=== PATIENT | male | born 1960 | race Caucasian/White ===

== ENCOUNTER 2020-07-03 13:54 | Emergency (ER) | payer BC, MEDICAID ==
[~2020-07-03] VITALS: Ht 182.9 cm; Wt 86.2 kg
[~2020-07-03 13:54] MED LIST: LISINOPRIL; METFORMIN; [UNRECOGNIZED DRUG - OTHER]
[2020-07-03 14:15] VITALS: BP_SYST 147
[2020-07-03 14:50] VITALS: BP_SYST 147
[2020-07-03] MEDS: cefTRIAXone 1 GM in LIDOCAINE 1%, 20 ML MDV 2.1 ML IM ONE (14:50)
== END 2020-07-03 14:51 | disposition home or self-care (01) ==
LOC: SED 13:54
DX: E11.621 Type 2 diabetes mellitus with foot ulcer (principal); I10 Essential (primary) hypertension; E11.9 Type 2 diabetes mellitus without complications; Z85.528 Personal history of other malignant neoplasm of kidney
CPT/HCPCS: 96372; 99283; J0696; J2001

== ENCOUNTER 2020-11-09 13:07 | Emergency (ER) | payer MEDICAID ==
[~2020-11-09] VITALS: Ht 185.4 cm; Wt 89.8 kg
[2020-11-09 13:19] VITALS: BP_SYST 128
[2020-11-09] MEDS ORDERED: PIPERACILLIN/TAZO 3.38 GM in D5W 50 ML IV ONE (13:30)
[2020-11-09] MEDS ORDERED: NACL 0.9% 1,000 ML IV ONE (13:30)
[2020-11-09] MEDS ORDERED: VANCOMYCIN HCL 1,000 MG in D5W 250 ML IV ONE (13:30)
[2020-11-09 13:48] LABS: BASOPHILS # (AUTO) 0.2 K/uL (0.0-0.2); BASOPHILS % (AUTO) 1.3 % (0.0-2.0); EOSINOPHILS % (AUTO) 0.4 % (0.0-4.0); HEMATOCRIT 37.6 % (36-54); HEMOGLOBIN 13.2 g/dL (14.0-18.0); LYMPHOCYTES # (AUTO) 0.7 K/uL (1.0-5.5); LYMPHOCYTES % (AUTO) 5.9 % (20.5-51.5); MEAN CORPUSCULAR HEMOGLOBIN 31 pg (27-31); MEAN CORPUSCULAR HGB CONC 35 % (32-36); MEAN CORPUSCULAR VOLUME 90 fL (79.0-98.0); MONOCYTES # (AUTO) 0.5 K/uL (0.0-1.0); MONOCYTES % (AUTO) 4.4 % (1.7-9.3); NEUTROPHILS # (AUTO) 10.7 K/uL (1.8-7.7); PLATELET COUNT (AUTO) 229 K/uL (130-430); RED CELL DISTRIBUTION WIDTH 13.7 % (9.0-15.0); WHITE BLOOD COUNT (AUTO) 12.1 K/uL (4.8-10.8)
[2020-11-09] MEDS ORDERED: VANCOMYCIN HCL 1000 MG/VIAL IV ONE (13:54)
[2020-11-09] MEDS ORDERED: PIPERACILLIN/TAZOBACTAM 3.375 GM/VIAL (ZOSYN) IV ONE (13:55)
[2020-11-09 14:01] LABS: CALCIUM 8.7 mg/dL (8.4-11.0); CREATININE 1.54 mg/dL (0.55-1.30)
[2020-11-09 14:07] LABS: ALBUMIN 3.3 g/dL (3.4-4.8); TOTAL BILIRUBIN 0.6 mg/dL (0.0-1.0)
[2020-11-09 14:14] LABS: C-REACTIVE PROTEIN QUANT 15.7 mg/dL (0-0.5)
[2020-11-09 14:40] LABS: BILIRUBIN,URINE NEGATIVE (NEGATIVE); BLOOD, URINE NEGATIVE (NEGATIVE); CLARITY/URINE CLEAR (CLEAR); COLOR,URINE YELLOW (YELLOW); GLUCOSE,URINE 3+ (NEGATIVE); KETONES,URINE TRACE (NEGATIVE); LEUKOCYTE ESTERASE ,URINE NEGATIVE (NEGATIVE); NITRITE, URINE NEGATIVE (NEGATIVE); PH,URINE 5.5 (5.0-8.0); PROTEIN URINE 3+ (NEGATIVE); UROBILINOGEN,URINE 0.2 (0.2-1.0)
[2020-11-09 14:53] LABS: BACTERIA,URINE None Seen /HPF (None Seen); FINE GRANULAR CASTS,URINE 0-10 /LPF (None Seen); RBC,URINE 0-3 /HPF (0-3); WBC,URINE 0-3 /HPF (0-3)
[2020-11-09 15:02] LABS: ERYTHROCYTE SEDIMENTATION RATE 75 MM/HR (0-15)
[2020-11-09 16:02] VITALS: BP_SYST 129
== END 2020-11-09 13:19 | disposition home or self-care (01) ==
LOC: SED 13:07
DX: E11.621 Type 2 diabetes mellitus with foot ulcer (principal); I10 Essential (primary) hypertension; Z85.528 Personal history of other malignant neoplasm of kidney
CPT/HCPCS: 36415; 73630; 80053; 81000; 82962; 83605; 85025; 85651; 85730; 86140; 87040; 96365; 96367; 99284; J2543; J3370

== ENCOUNTER 2021-08-01 11:05 | Emergency (ER) | payer MEDICAID ==
[~2021-08-01] VITALS: Ht 182.9 cm; Wt 90.7 kg
[2021-08-01 11:17] VITALS: BP_SYST 171
--- NOTE | 2021-08-01 11:45 | NUR ---
Patient to ER bed 3 to gown for evaluation. Side rails up. Report given to Chacorta GUSMAN.
--- NOTE | 2021-08-01 11:50 | NUR ---
ER at bedside examining patient.
[2021-08-01] MEDS ORDERED: VANCOMYCIN HCL 1,000 MG in NS 250 ML IV ONE (12:00)
--- NOTE | 2021-08-01 12:00 | NUR ---
# 20 gauge angiocath placed to R AC. Use of asceptic technique. Opsite placed over site. Blood return noted. Blood for lab drawn from site. Flushed with 10 cc of normal saline. No evidence of infiltration noted. Patient tolerated well.
[2021-08-01] MEDS ORDERED: VANCOMYCIN HCL 1000 MG/VIAL IV ONE ×2 (12:08→12:30)
[2021-08-01 12:19] LABS: BASOPHILS % (AUTO) 0.5 % (0.0-2.0); EOSINOPHILS # (AUTO) 0.1 K/uL (0.0-0.4); EOSINOPHILS % (AUTO) 0.8 % (0.0-4.0); HEMATOCRIT 35.2 % (36-54); HEMOGLOBIN 11.9 g/dL (14.0-18.0); LYMPHOCYTES % (AUTO) 13.5 % (20.5-51.5); MEAN CORPUSCULAR HEMOGLOBIN 30 pg (27-31); MEAN CORPUSCULAR HGB CONC 34 % (32-36); MEAN CORPUSCULAR VOLUME 89 fL (79.0-98.0); MONOCYTES # (AUTO) 0.4 K/uL (0.0-1.0); MONOCYTES % (AUTO) 5.3 % (1.7-9.3); NEUTROPHILS # (AUTO) 5.8 K/uL (1.8-7.7); NEUTROPHILS % (AUTO) 79.9 % (40.0-70.0); PLATELET COUNT (AUTO) 225 K/uL (130-430); RED BLOOD CELL COUNT(AUTO) 3.96 MIL/uL (4.2-6.2); RED CELL DISTRIBUTION WIDTH 13.3 % (9.0-15.0); WHITE BLOOD COUNT (AUTO) 7.3 K/uL (4.8-10.8)
[2021-08-01 12:40] LABS: POTASSIUM 4.3 mmol/L (3.5-5.1)
[2021-08-01 12:41] LABS: CALCIUM 8.7 mg/dL (8.4-11.0); CREATININE 1.55 mg/dL (0.55-1.30)
--- NOTE | 2021-08-01 13:00 | NUR ---
PT MEDICATED WITH ANTIBIOTICS. PT TOLERATING WELL.
[2021-08-01 13:05] LABS: ERYTHROCYTE SEDIMENTATION RATE 49 MM/HR (0-15)
[2021-08-01 13:19] LABS: ALBUMIN 3.3 g/dL (3.4-4.8); TOTAL BILIRUBIN 0.6 mg/dL (0.0-1.0); URIC ACID 5.4 mg/dL (2.4-7.0)
[2021-08-01 14:42] LABS: C-REACTIVE PROTEIN QUANT 1.3 mg/dL (0-0.5)
[2021-08-01 15:12] VITALS: BP_SYST 142
--- NOTE | 2021-08-01 15:14 | NUR ---
Patient does not wish to proceed with medical care recommended by DR GUERRERO. Patient given information related to possible complications, up to and including , which could occur as a result of leaving hospital at this time. Patient verbalizes understanding of risks involved leaving against medical advice. Patient has signed AMA form.
== END 2021-08-01 15:14 | disposition left against medical advice (07) ==
LOC: SED 11:05
DX: L03.116 Cellulitis of left lower limb (principal); E11.621 Type 2 diabetes mellitus with foot ulcer; I10 Essential (primary) hypertension; Z79.899 Other long term (current) drug therapy
CPT/HCPCS: 36415; 73630; 80053; 82962; 83605; 84550; 85025; 85651; 86140; 87040; 96365; 96366; 99284; J3370

== ENCOUNTER 2021-08-06 09:52 | Emergency (ER) | payer MEDICAID ==
[~2021-08-06] VITALS: Ht 182.9 cm; Wt 90.7 kg
--- NOTE | 2021-08-06 09:55 | NUR ---
Pt to bed 6 for evaluation.
[2021-08-06 10:00] VITALS: BP_SYST 180
--- NOTE | 2021-08-06 10:00 | NUR ---
Pt AAO and ambulatory reporting open great toe ulcer x 2 months. Pt has history of Diabetes and wound is not healing appropriately. Toe is swollen and red with a tunneling ulcer. Pt denies pain currently.
--- NOTE | 2021-08-06 10:10 | NUR ---
Dr. Sanabria at bedside to assess.
--- NOTE | 2021-08-06 10:25 | NUR ---
Lab at bedside for blood draw.
--- NOTE | 2021-08-06 10:30 | NUR ---
Portable CXR done at bedside.
--- NOTE | 2021-08-06 10:37 | NUR ---
EKG done with results given to Dr. Sanabria for interpretation.
[2021-08-06 11:04] LABS: BASOPHILS % (AUTO) 0.5 % (0.0-2.0); HEMATOCRIT 36.3 % (36-54); HEMOGLOBIN 12.2 g/dL (14.0-18.0); LYMPHOCYTES # (AUTO) 0.7 K/uL (1.0-5.5); MEAN CORPUSCULAR HEMOGLOBIN 30 pg (27-31); MEAN CORPUSCULAR HGB CONC 34 % (32-36); MEAN CORPUSCULAR VOLUME 90 fL (79.0-98.0); MONOCYTES # (AUTO) 0.3 K/uL (0.0-1.0); MONOCYTES % (AUTO) 6.3 % (1.7-9.3); NEUTROPHILS # (AUTO) 3.8 K/uL (1.8-7.7); NEUTROPHILS % (AUTO) 77.2 % (40.0-70.0); PLATELET COUNT (AUTO) 244 K/uL (130-430); RED BLOOD CELL COUNT(AUTO) 4.05 MIL/uL (4.2-6.2); RED CELL DISTRIBUTION WIDTH 13.1 % (9.0-15.0); WHITE BLOOD COUNT (AUTO) 4.9 K/uL (4.8-10.8)
[2021-08-06 11:09] LABS: CALCIUM 7.7 mg/dL (8.4-11.0); CREATININE 1.55 mg/dL (0.55-1.30); POTASSIUM 4.7 mmol/L (3.5-5.1)
[2021-08-06 11:11] LABS: INR 0.9 (0.80-1.20); PROTHROMBIN TIME 10.1 SECS (9.5-12.5)
[2021-08-06 11:13] LABS: ALBUMIN 3.3 g/dL (3.4-4.8); C-REACTIVE PROTEIN QUANT 0.6 mg/dL (0-0.5); TOTAL BILIRUBIN 0.3 mg/dL (0.0-1.0)
--- NOTE | 2021-08-06 12:00 | NUR ---
Pt resting quietly in no distress awaiting disposition.
[2021-08-06] MEDS ORDERED: CLIN300C12 PO (12:18)
[2021-08-06] MEDS ORDERED: BACITRACIN 1 GM OINT TP ONE (12:30)
--- NOTE | 2021-08-06 13:25 | NUR ---
Patient given written and verbal discharge instructions and verbalizes understanding. Dr. Daniele GONZALEZ MD discussed with patient the results and treatment provided. Patient in stable condition. ID arm band removed. Rx per MD. Patient educated on pain management and to follow up with PMD. Pain Scale 0/10. Opportunity for questions provided and answered. Medication side effect fact sheet provided.
[2021-08-06 13:30] VITALS: BP_SYST 160
== END 2021-08-06 13:25 | disposition home or self-care (01) ==
LOC: SED 09:52
DX: E11.621 Type 2 diabetes mellitus with foot ulcer (principal); L97.529 Non-pressure chronic ulcer of other part of left foot with unspecified severity; I10 Essential (primary) hypertension; E11.9 Type 2 diabetes mellitus without complications; Z79.899 Other long term (current) drug therapy
CPT/HCPCS: 36415; 71045; 80053; 83880; 84484; 85025; 85610-TC; 85730-TC; 86140; 93005; 99285

== ENCOUNTER 2021-12-09 10:35 | Emergency (ER) | payer MEDICAID ==
[~2021-12-09] VITALS: Ht 182.9 cm; Wt 95.3 kg
[~2021-12-09 10:35] MED LIST changes: +CLIN-142 PO
[2021-12-09 10:49] VITALS: BP_SYST 181
--- NOTE | 2021-12-09 10:53 | NUR ---
Pt to bed #5 coming from home ambulatory with steady gait. Pt is A&Ox4. Pt c/o having swelling in bilateral lower extremities that started 2 weeks ago. Pt has no pain and no loss of sensation in lower extremities. Denies chest pain and no sob. No n/v. Connected pt to pvc monitor and VSS. Bed in lowest position.
--- NOTE | 2021-12-09 11:17 | NUR ---
Dr. Antonio at bedside examining pt.
[2021-12-09] MEDS ORDERED: FUROSEMIDE 40 MG/4 ML VIAL IVP ONE (11:30)
--- NOTE | 2021-12-09 11:43 | NUR ---
EKG being done at bedside.
--- NOTE | 2021-12-09 11:43 | NUR ---
20g IV placed on right AC using aseptic technique. No infiltration noted. Slaine lock.
[2021-12-09 11:48] LABS: BASOPHILS % (AUTO) 0.6 % (0.0-2.0); EOSINOPHILS % (AUTO) 0.8 % (0.0-4.0); HEMATOCRIT 39.9 % (36-54); HEMOGLOBIN 13.3 g/dL (14.0-18.0); LYMPHOCYTES # (AUTO) 0.7 K/uL (1.0-5.5); LYMPHOCYTES % (AUTO) 12.7 % (20.5-51.5); MEAN CORPUSCULAR HEMOGLOBIN 29 pg (27-31); MEAN CORPUSCULAR HGB CONC 33 % (32-36); MEAN CORPUSCULAR VOLUME 88 fL (79.0-98.0); MONOCYTES # (AUTO) 0.3 K/uL (0.0-1.0); MONOCYTES % (AUTO) 4.8 % (1.7-9.3); NEUTROPHILS # (AUTO) 4.8 K/uL (1.8-7.7); NEUTROPHILS % (AUTO) 81.1 % (40.0-70.0); PLATELET COUNT (AUTO) 214 K/uL (130-430); RED BLOOD CELL COUNT(AUTO) 4.56 MIL/uL (4.2-6.2); RED CELL DISTRIBUTION WIDTH 15.7 % (9.0-15.0); WHITE BLOOD COUNT (AUTO) 5.9 K/uL (4.8-10.8)
[2021-12-09 11:59] LABS: CALCIUM 9.1 mg/dL (8.4-11.0); CREATININE 2.18 mg/dL (0.55-1.30); POTASSIUM 4.4 mmol/L (3.5-5.1)
[2021-12-09 12:08] LABS: ALBUMIN 3.2 g/dL (3.4-4.8); TOTAL BILIRUBIN 0.5 mg/dL (0.0-1.0)
[2021-12-09] MEDS ORDERED: FURO-150 PO (13:20)
[2021-12-09] MEDS ORDERED: CEPH-548 PO (13:22)
[2021-12-09 13:41] VITALS: BP_SYST 138
--- NOTE | 2021-12-09 13:42 | NUR ---
Patient given written and verbal discharge instructions and verbalizes understanding. ER MD discussed with patient the results and treatment provided. Patient in stable condition. ID arm band removed. IV catheter removed intact and dressing applied, no active bleeding. Rx of Cephalexin & Lasix given. Patient educated on pain management and to follow up with PMD. Pain Scale . Opportunity for questions provided and answered. Medication side effect fact sheet provided.
== END 2021-12-09 13:42 | disposition home or self-care (01) ==
LOC: SED 10:35
DX: R60.0 Localized edema (principal); N17.9 Acute kidney failure, unspecified; I10 Essential (primary) hypertension; E11.9 Type 2 diabetes mellitus without complications; Z79.899 Other long term (current) drug therapy
CPT/HCPCS: 36415; 71045; 80053; 83880; 84484; 85025; 93005; 96374; 99285; J1940

== ENCOUNTER 2022-01-14 13:20 | Emergency (ER) | payer MEDICAID ==
[~2022-01-14] VITALS: Ht 182.9 cm; Wt 97.5 kg
[~2022-01-14 13:20] MED LIST changes: +CEPH-548 PO; +FURO-150 PO
[2022-01-14 13:50] VITALS: BP_SYST 173
--- NOTE | 2022-01-14 14:03 | NUR ---
Patient to ER bed 7 for evaluation. Side rails up. Report given to Kelli GUSMAN.
--- NOTE | 2022-01-14 14:10 | NUR ---
Patient c/c BLE swelling, pitting edema to BLE +3 Patient Aox4, placed onto monitor with elevated BP 173/98. 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
--- NOTE | 2022-01-14 14:15 | NUR ---
MD at bedside assessing patient
--- NOTE | 2022-01-14 14:27 | NUR ---
EKG performed at patient bedside and results given to Dr Cabrera
[2022-01-14] MEDS ORDERED: FUROSEMIDE 40 MG/4 ML VIAL IVP ONE (14:30)
--- NOTE | 2022-01-14 14:30 | NUR ---
Labs drawn and sent to lab
--- NOTE | 2022-01-14 14:38 | NUR ---
radiology at patients bedside
--- NOTE | 2022-01-14 15:12 | NUR ---
ultrasound sound being conducted at patient bedside
[2022-01-14 15:19] LABS: HEMOGLOBIN 12.6 g/dL (14.0-18.0); MEAN CORPUSCULAR VOLUME 89 fL (79.0-98.0)
[2022-01-14 15:24] LABS: BASOPHILS % (AUTO) 0.4 % (0.0-2.0); EOSINOPHILS # (AUTO) 0.2 K/uL (0.0-0.4); EOSINOPHILS % (AUTO) 2.5 % (0.0-4.0); HEMATOCRIT 38.4 % (36-54); LYMPHOCYTES # (AUTO) 0.7 K/uL (1.0-5.5); LYMPHOCYTES % (AUTO) 9.9 % (20.5-51.5); MEAN CORPUSCULAR HEMOGLOBIN 29 pg (27-31); MEAN CORPUSCULAR HGB CONC 33 % (32-36); MONOCYTES # (AUTO) 0.3 K/uL (0.0-1.0); MONOCYTES % (AUTO) 4.3 % (1.7-9.3); NEUTROPHILS # (AUTO) 5.8 K/uL (1.8-7.7); NEUTROPHILS % (AUTO) 82.9 % (40.0-70.0); PLATELET COUNT (AUTO) 241 K/uL (130-430); RED BLOOD CELL COUNT(AUTO) 4.29 MIL/uL (4.2-6.2); RED CELL DISTRIBUTION WIDTH 16.6 % (9.0-15.0)
[2022-01-14 15:48] LABS: ALANINE AMINOTRANSFERASE 23 U/L (12-78); ALBUMIN 3.1 g/dL (3.4-4.8); ANION GAP 6 (5-15); ASPARTATE AMINOTRANSFERASE 16 U/L (10-37); CHLORIDE 105 mmol/L (98-107); CREATININE 2.34 mg/dL (0.55-1.30); GLUCOSE 90 mg/dL (70-99); POTASSIUM 3.7 mmol/L (3.5-5.1); SODIUM SERUM 139 mmol/L (136-145); TOTAL BILIRUBIN 0.4 mg/dL (0.0-1.0)
[2022-01-14 15:50] LABS: GFR AFRICAN AMERICAN 37 mL/min (>90)
--- NOTE | 2022-01-14 16:00 | NUR ---
Patient remains stable in no acute distress and or discomfort.
[2022-01-14 16:43] LABS: UREA NITROGEN, BLOOD 20 mg/dL (8-21)
[2022-01-14] MEDS ORDERED: ASPIRIN 325 MG TABLET PO ONE (17:00)
[2022-01-14] MEDS ORDERED: cefTRIAXone 1 GM in D5W 50 ML IV ONE (17:00)
--- NOTE | 2022-01-14 17:00 | NUR ---
patient was adviced he would need to be admitted, patient declined to be admitted because he had to go home and take care of a personal issue.
[2022-01-14] MEDS ORDERED: cefTRIAXone 1 GM VIAL ONE (17:10)
--- NOTE | 2022-01-14 17:50 | NUR ---
IV Abx infusing per orders, tolerating well with no adverse reactions noted.
[2022-01-14 17:54] VITALS: BP_SYST 169
--- NOTE | 2022-01-14 17:56 | NUR ---
patient AMA. patient declined to be admitted Dr Cabrera aware
--- NOTE | 2022-01-14 18:06 | NUR ---
Patient does not wish to proceed with medical care recommended by Dr Cabrera. Patient given information related to possible complications, up to and including , which could occur as a result of leaving hospital at this time. Patient verbalizes understanding of risks involved leaving against medical advice. Patient has signed AMA form.
[2022-01-14] MEDS ORDERED: METF-518 PO (22:03)
== END 2022-01-14 18:06 | disposition left against medical advice (07) ==
LOC: SED 13:20
DX: I11.0 Hypertensive heart disease with heart failure (principal); I50.9 Heart failure, unspecified; L03.119 Cellulitis of unspecified part of limb; N17.9 Acute kidney failure, unspecified; I10 Essential (primary) hypertension
CPT/HCPCS: 36415; 71045; 80053; 83605; 83880; 84484; 85025; 87040; 93005; 93970; 96365; 96375; 99285; J0696; J1940; 96374

== ENCOUNTER 2022-01-14 19:21 | Inpatient (IN) | payer MEDICAID ==
[~2022-01-14] VITALS: Ht 182.9 cm; Wt 97.1 kg
[2022-01-14 01:00] VITALS: BP_SYST 165
[2022-01-14 19:38] VITALS: BP_SYST 124
[2022-01-14] MEDS ORDERED: METF-518 PO (22:03)
[2022-01-15 01:00] VITALS: BP_SYST 165
[2022-01-15] MEDS ORDERED: FUROSEMIDE 20 MG TABLET PO ONE (10:15)
[2022-01-15] MEDS ORDERED: metFORMIN HCL 500 MG TABLET PO ONE (10:15)
[2022-01-15 11:01] LABS: BASOPHILS % (AUTO) 0.5 % (0.0-2.0); EOSINOPHILS # (AUTO) 0.2 K/uL (0.0-0.4); HEMATOCRIT 39.3 % (36-54); HEMOGLOBIN 12.7 g/dL (14.0-18.0); LYMPHOCYTES # (AUTO) 0.5 K/uL (1.0-5.5); LYMPHOCYTES % (AUTO) 8.7 % (20.5-51.5); MEAN CORPUSCULAR HEMOGLOBIN 29 pg (27-31); MEAN CORPUSCULAR HGB CONC 32 % (32-36); MEAN CORPUSCULAR VOLUME 89 fL (79.0-98.0); MONOCYTES # (AUTO) 0.3 K/uL (0.0-1.0); MONOCYTES % (AUTO) 4.6 % (1.7-9.3); NEUTROPHILS # (AUTO) 5.1 K/uL (1.8-7.7); NEUTROPHILS % (AUTO) 83.2 % (40.0-70.0); PLATELET COUNT (AUTO) 226 K/uL (130-430); RED CELL DISTRIBUTION WIDTH 16.7 % (9.0-15.0); WHITE BLOOD COUNT (AUTO) 6.2 K/uL (4.8-10.8)
[2022-01-15 11:15] LABS: CALCIUM 7.7 mg/dL (8.4-11.0); CREATININE 2.26 mg/dL (0.55-1.30)
[2022-01-15] MEDS ORDERED: ceFAZolin SODIUM 1 GM in D5W 50 ML IV SCH (14:00)
[2022-01-16] MEDS ORDERED: metFORMIN HCL 500 MG TABLET PO SCH (09:00)
[2022-01-16] MEDS ORDERED: FUROSEMIDE 20 MG TABLET PO SCH (09:00)
== END 2022-01-15 11:20 | disposition left against medical advice (07) | DRG 194 ==
LOC: SED 19:21 → STU 20:41
PROVIDERS: ADMIT Internal Medicine Hospice and Palliative Medicine; ATTEND Internal Medicine Hospice and Palliative Medicine
DX: I11.0 Hypertensive heart disease with heart failure (principal); N17.0 Acute kidney failure with tubular necrosis; L03.115 Cellulitis of right lower limb; I50.9 Heart failure, unspecified; Z20.822 Contact with and (suspected) exposure to COVID-19; Z79.84 Long term (current) use of oral hypoglycemic drugs; Z79.899 Other long term (current) drug therapy
CPT/HCPCS: 36415; 80048; 85025; 99285; G0378; J0690; J7060

== ENCOUNTER 2022-10-29 10:37 | Inpatient (IN) | payer MEDICAID ==
[~2022-10-29] VITALS: Ht 182.9 cm; Wt 95.3 kg
[~2022-10-29 10:37] MED LIST changes: -CEPH-548 PO; -CLIN-142 PO; -LISINOPRIL; +METF-518 PO; -METFORMIN; -[UNRECOGNIZED DRUG - OTHER]
--- NOTE | 2022-10-29 10:46 | NUR ---
ER at bedside examining patient.
[2022-10-29 10:47] VITALS: BP_SYST 183
[2022-10-29] MEDS ORDERED: metOLazone 2.5 MG TABLET PO ONE (11:00)
[2022-10-29] MEDS ORDERED: FUROSEMIDE 40 MG/4 ML VIAL IVP ONE (11:00)
--- NOTE | 2022-10-29 11:10 | NUR ---
peripheral iv started to LAC
[2022-10-29 11:27] LABS: BASOPHILS # (AUTO) 0.1 K/uL (0.0-0.2); EOSINOPHILS % (AUTO) 0.2 % (0.0-4.0); HEMATOCRIT 44.8 % (36-54); HEMOGLOBIN 14.6 g/dL (14.0-18.0); LYMPHOCYTES # (AUTO) 0.4 K/uL (1.0-5.5); LYMPHOCYTES % (AUTO) 4.9 % (20.5-51.5); MEAN CORPUSCULAR HEMOGLOBIN 31 pg (27-31); MEAN CORPUSCULAR HGB CONC 33 % (32-36); MEAN CORPUSCULAR VOLUME 96 fL (79.0-98.0); MONOCYTES # (AUTO) 0.3 K/uL (0.0-1.0); MONOCYTES % (AUTO) 4.4 % (1.7-9.3); NEUTROPHILS # (AUTO) 6.5 K/uL (1.8-7.7); NEUTROPHILS % (AUTO) 89.5 % (40.0-70.0); PLATELET COUNT (AUTO) 191 K/uL (130-430); RED BLOOD CELL COUNT(AUTO) 4.65 MIL/uL (4.2-6.2); RED CELL DISTRIBUTION WIDTH 16.9 % (9.0-15.0); WHITE BLOOD COUNT (AUTO) 7.2 K/uL (4.8-10.8)
--- NOTE | 2022-10-29 11:36 | NUR ---
pt presents to ed with report of scrotal pain x 2 weeks. pt noted with red / swollen scrotum. pt reports having bilateral lower extremity swelling / fluid retention and was prescribed lasix "about a month ago". pt is awake, a/o x4 and verbally responsive. no acute distress noted. breathing even and unlabored. pt sitting upright in [place], safety measures in place
[2022-10-29 11:39] LABS: ANION GAP 14 (5-15); CALCIUM 8.8 mg/dL (8.4-11.0); CHLORIDE 105 mmol/L (98-107); CREATININE 4.77 mg/dL (0.55-1.30); GLUCOSE 115 mg/dL (70-99); UREA NITROGEN, BLOOD 59 mg/dL (8-21)
[2022-10-29 11:41] LABS: GFR AFRICAN AMERICAN 16 mL/min (>90)
[2022-10-29 11:46] LABS: ALANINE AMINOTRANSFERASE 12 U/L (12-78); ALBUMIN 3.2 g/dL (3.4-4.8); ASPARTATE AMINOTRANSFERASE 19 U/L (10-37)
--- NOTE | 2022-10-29 12:44 | NUR ---
swabbed bilateral nares for covid and mrsa. dropped off at lab at [id number]
--- NOTE | 2022-10-29 13:30 | NUR ---
urine output from urinal 350ml
--- NOTE | 2022-10-29 13:33 | NUR ---
PT resting in position of comfort. no acute distress noted. breathing even and unlabored. pt remains on caridac monitor, resting in position of comfort in [facility]. safety measures in place. md valentino made aware of pt's bp 182/130
[2022-10-29] MEDS ORDERED: LABETALOL HCL 20 MG/4 ML CARTRIDGE IVP ONE (13:45)
--- NOTE | 2022-10-29 13:58 | NUR ---
Admit bed requested Patient will be admitted to care of . Admitted to TELE unit. Diagnosis CHF AND RENAL FAILURE Inpatient (Yes or No) Y Observation (Yes or No) N Orientation concerns or request close to nursing station (Yes or No) N Covid Status NEG On vent or bipap N Isolation requirements N Needs a sitter N From Home (Yes or if No enter name of facility) Y Requires Dialysis (Yes or No) N Med Rec Completed (Yes of No) Y
--- NOTE | 2022-10-29 15:11 | NUR ---
urine output from urinal 400ml
--- NOTE | 2022-10-29 15:16 | NUR ---
pt requested to have BS check, noted at 113. requested snack and snack and water provided.
[2022-10-29] MEDS ORDERED: ONDANSETRON HCL 4 MG/2 ML VIAL IM PRN (15:30)
[2022-10-29] MEDS ORDERED: ACETAMINOPHEN 500 MG TABLET PO PRN (15:30)
--- NOTE | 2022-10-29 15:45 | NUR ---
spoke with MD redmond regarding pt's bp of 178/114. per md redmond, will input orders. pharmacy also called and wanted clarification of bumex medication, per md redmond, stated he wanted it scheduled bid but not to start today d/t pt receiving 80mg of lasix. informed pharmacy of md clark order
[2022-10-29] MEDS ORDERED: hydrALAZINE HCL 20 MG/ML VIAL IVP PRN (16:00)
--- NOTE | 2022-10-29 17:00 | NUR ---
ADMISSION NOTE Received from nurse De Leon, patient admitted from ER via gurney. Patient admitted with diagnosis of CHF,Renal Failure. Patient is awake, alert, oriented X 4. Respiration even and unlabored with saturation at 98% room air, no c/o pain or distress. IV saline lock left AC patent.Patient oriented to hospital room, call light, toileting, pain management and safety-teach back done. Patient informed Personal belongings checked and Belongings List documented. Call light within reach, and bed in low position.
--- NOTE | 2022-10-29 17:05 | NUR ---
bedside report provided to ARNAV GUSMAN. pt to be transferred to room 100A
--- NOTE | 2022-10-29 17:07 | NUR ---
CONSULTATION PAGED REASON FOR CONSULTATION: RENAL FAILURE, CHF WAS CONSULT CALLED? Y PERSON WHO WAS NOTIFIED: BLAIR CONSULTING PHYSICIAN: ZHANG BENNETT GLASS TECHNICIAN SPECIALTY: PULMONARY GLASS TECHNICIAN PHONE NUMBER: [phone] REQUESTING PHYSICIAN: LINDA ABREU
--- NOTE | 2022-10-29 17:08 | NUR ---
CONSULTATION PAGED/CALLED Reason for Consultation: [] CHF Person Who was Notified: [] NEETA Consulting Physician: [] DR HALEY Emt Dispatcher Specialty: [] PULGEORGIE Ordering Physician: [] DR TURK
[2022-10-29] MEDS ORDERED: LABETALOL HCL 100 MG TABLET PO ONE (17:15)
[2022-10-29] MEDS ORDERED: LABETALOL 100 MG/ 20ML VIAL IV ONE (17:15)
[2022-10-29] MEDS ORDERED: hydrALAZINE HCL 20 MG/ML VIAL IVP ONE (17:15)
[2022-10-29] MEDS: hydrALAZINE HCL 25 MG TABLET PO SCH (18:00)
[2022-10-29] MEDS ORDERED: FUROSEMIDE 100 MG in D5W 90 ML IV SCH (18:00)
[2022-10-29 18:30] VITALS: BP_SYST 147
[2022-10-29 18:43] VITALS: BP_SYST 147
[2022-10-29 20:05] VITALS: BP_SYST 148
--- NOTE | 2022-10-29 20:05 | NUR ---
RECEIVED PT IN BED, AOX4, EVEN AND UNLABORED BREATHING, DENIED ANY SOB, CP, DIZZINESS OR H/A. , WILL CONTINUE WITH PLAN OF CARE
--- NOTE | 2022-10-29 21:13 | NUR ---
CONSULTATION PAGED/CALLED Reason for Consultation: Person Who was Notified:dr puneet mott Consulting Physician: patsy gilbert Button Riveter Specialty: Ordering Physician: ruy
[2022-10-29] MEDS: LABETALOL HCL 100 MG TABLET PO SCH (22:00)
[2022-10-30] MEDS: hydrALAZINE HCL 25 MG TABLET PO SCH ×2 (01:00→07:28)
[2022-10-30 01:56] VITALS: BP_SYST 144
--- NOTE | 2022-10-30 02:01 | NUR ---
PT IV GOT INFILTRATED, RESTARTED A NEW IV ACCESS ON RAC 22G, PT TOLERATED WELL
[2022-10-30 04:00] VITALS: BP_SYST 153
--- NOTE | 2022-10-30 06:16 | NUR ---
PT IN BED, AOX4, EVEN AND UNLABORED BREATHING, PT DENIED ANY SOB, CP, DIZZINESS OR H/A. LASIX ONGOING AT 10CC TO RAC, SBP SLIGHTLY ELEVATED, LAST 153/86, SAFETY PREC MAINTAINED, BPR, VOIDED AND BM, STATED THE SCROTAL SWELLING HAS MINIMIZED GREATLY, CALL LIGHT WITHIN REACH, WILL ENDORSE TO INCOMING RN
[2022-10-30 06:52] LABS: BASOPHILS % (AUTO) 0.6 % (0.0-2.0); EOSINOPHILS % (AUTO) 0.6 % (0.0-4.0); HEMOGLOBIN 12.3 g/dL (14.0-18.0); LYMPHOCYTES # (AUTO) 0.3 K/uL (1.0-5.5); LYMPHOCYTES % (AUTO) 6.2 % (20.5-51.5); MEAN CORPUSCULAR HEMOGLOBIN 32 pg (27-31); MEAN CORPUSCULAR HGB CONC 33 % (32-36); MEAN CORPUSCULAR VOLUME 97 fL (79.0-98.0); MONOCYTES # (AUTO) 0.3 K/uL (0.0-1.0); MONOCYTES % (AUTO) 5.6 % (1.7-9.3); NEUTROPHILS # (AUTO) 4.6 K/uL (1.8-7.7); PLATELET COUNT (AUTO) 131 K/uL (130-430); RED BLOOD CELL COUNT(AUTO) 3.82 MIL/uL (4.2-6.2); RED CELL DISTRIBUTION WIDTH 17.1 % (9.0-15.0); WHITE BLOOD COUNT (AUTO) 5.3 K/uL (4.8-10.8)
[2022-10-30 07:35] LABS: ALBUMIN 2.6 g/dL (3.4-4.8); CALCIUM 8.5 mg/dL (8.4-11.0); CREATININE 4.88 mg/dL (0.55-1.30); TOTAL BILIRUBIN 0.6 mg/dL (0.0-1.0)
[2022-10-30 08:10] VITALS: BP_SYST 156
[2022-10-30] MEDS: LABETALOL HCL 100 MG TABLET PO SCH (09:00)
[2022-10-30] MEDS ORDERED: BUMEX 1 MG/4 ML VIAL IVP SCH (09:00)
--- NOTE | 2022-10-30 11:18 | NUR ---
PATIENT REFUSED TRANDATE MEDICATION. PATIENT STATED, "I'M FEELING GOOD, THERE'S NOTHING WRONG WITH ME". PATIENT IS STILL ON LASIX IV DRIP 10CC/HR. INSTRUCTED PATIENT THAT HE'S STILL EDEMATOUS TO BILATERAL LOWER EXTREMITIES, 4+. PULSES ARE FAINT, SCROTUM IS SWELLING. PATIENT DENIES PAIN AND SHORTNESS OF BREATH. PATIENT SIGNED AMA FORM AND WANTED TO LEAVE RIGHT AWAY BUT INSTRUCTED PATIENT THAT WE'LL INFORM MD AND CHARGE NURSE FIRST. SAW DR. TURK AT THE STATION AND TOLD HIM ABOUT PATIENT'S AMA. MD WILL TALK TO HIM TO STAY.
[2022-10-30] MEDS ORDERED: BUME1TAB9 PO (11:46)
[2022-10-30] MEDS ORDERED: METO5TAB7 PO (11:46)
[2022-10-30] MEDS ORDERED: ASPI-1393 PO (11:50)
[2022-10-30] MEDS ORDERED: SITA25TA3 PO (11:50)
[2022-10-30] MEDS ORDERED: ROSU10TA2 PO (11:50)
[2022-10-30 12:19] VITALS: BP_SYST 128
--- NOTE | 2022-10-30 12:53 | NUR ---
D/C Patient to home via personal vehicle. Patient given medication reconciliation form and D/C instructions. Exit Care provided. Patient verbalized understanding. MD discussed with patient the results and treatment provided. Ambulatory with steady gait for discharge to home. Patient's BP stable,ID band removed. IV catheter removed, intact and dressing applied, no active bleeding. Rx of given. All belongings sent with patient. Patient is still has intermittent dry, non productive cough and audible wheezes but not in distress. Patient wants to go home. VSS. BP 128/72; HR 72; RR 18; O2 sat 98%, denies any pain or discomfort and afebrile.
--- NOTE | 2022-10-30 13:04 | NUR ---
Patient will see Dr. Preston on November 02Monday @ 1100.
== END 2022-10-30 12:52 | disposition home or self-care (01) | DRG 199 ==
LOC: SED 10:37 → STU 13:56
PROVIDERS: ADMIT Internal Medicine; ATTEND Internal Medicine
DX: I16.0 Hypertensive urgency (principal); N17.0 Acute kidney failure with tubular necrosis; I50.23 Acute on chronic systolic (congestive) heart failure; I13.0 Hypertensive heart and chronic kidney disease with heart failure and stage 1 through stage 4 chronic kidney disease, or unspecified chronic kidney disease; E11.22 Type 2 diabetes mellitus with diabetic chronic kidney disease; I50.9 Heart failure, unspecified; N18.9 Chronic kidney disease, unspecified; Z20.822 Contact with and (suspected) exposure to COVID-19; Z85.528 Personal history of other malignant neoplasm of kidney
CPT/HCPCS: 36415; 71045; 76770; 80053; 82962; 83037; 83735; 83880; 84484; 85025; 87081; 93005; 93306; 96374; 96375; 99285; G0378; J0360; J1940; J7060